=== PATIENT | male | born 1975 | race Caucasian/White ===

== ENCOUNTER → 2018-05-20 | Outpatient (CLI) | payer OTHER ==
[~2018-05-20] MED LIST: MAGCITRATE PO
== END ==
LOC: COL.RAD 05-17 13:15
DX: M51.36 Other intervertebral disc degeneration, lumbar region (principal)

== ENCOUNTER 2018-05-24 09:38 | Emergency (ER) | payer OTHER ==
[~2018-05-24] VITALS: Ht 177.8 cm; Wt 86.4 kg
[2018-05-24 09:48] VITALS: TEMP 97.5
[2018-05-24 10:26] LABS: BASO % 0.7 % (0.0-2.0); EOS # 0.1 (0.0-0.7); EOS % 1.6 % (0-4.0); GRAN # 2.7 (1.4-6.5); GRAN % 60.9 % (42.2-75.2); HEMATOCRIT 44.7 % (42.0-52.0); HEMOGLOBIN 15.2 g/dl (13.5-18.0); LYMPH # 1.3 (1.2-3.4); MEAN CELL VOLUME 84 fl (80.0-100.0); MEAN CORPUSCULAR HEMOGLOBIN 29 pg (27.0-31.0); MEAN CORPUSCULAR HGB CONC 34 g/dl (33.0-37.0); MEAN PLATELET VOLUME 9.4 fl (7.4-10.4); MONO # 0.3 (0.1-0.6); MONO % 7.1 % (1.7-9.3); PLATELET COUNT 279 K/mm3 (130-400); RED BLOOD COUNT 5.32 M/mm3 (4.20-5.60); REDCELL DISTRIBUTION WIDTH-CV 13.2 % (11.5-14.5)
[2018-05-24 10:53] LABS: ALBUMIN 4.7 gm/dL (3.5-5.0); BILIRUBIN,TOTAL 1.3 mg/dL (0.0-1.0); CALCIUM 9.8 mg/dL (8.4-10.2); CREATININE, serum 0.99 (0.66-1.25); POTASSIUM 4.1 mmol/L (3.4-5.0); TOTAL PROTEIN 8.1 gm/dL (6.4-8.2)
[2018-05-24 11:08] LABS: COLLECTION METHOD CLEAN CATCH
[2018-05-24 11:16] LABS: PH 8 (5-8); SQUAMOUS EPITHELIAL None Seen /hpf; URINE APPEARANCE Clear; URINE BACTERIA None Seen /hpf; URINE BILIRUBIN Negative (NEGATIVE); URINE BLOOD Negative (NEGATIVE); URINE COLOR Straw; URINE GLUCOSE Negative (NEGATIVE); URINE KETONE Negative (NEGATIVE); URINE LEUKOCYTE ESTERASE Negative (NEGATIVE); URINE NITRATE Negative (NEGATIVE); URINE PROTEIN(semi-quant) Negative (NEGATIVE); URINE RBC 0-2 /hpf; URINE UROBILINOGEN Negative (NEGATIVE)
[2018-05-24] MEDS ORDERED: MAGCITRATE PO (12:34)
[2018-05-24 12:54] VITALS: BP 109/81; PULSE 61
== END 2018-05-24 12:56 | disposition home or self-care (01) ==
LOC: COL.ER 09:38
PROVIDERS: Emergency Medicine
DX: R10.84 Generalized abdominal pain (principal)
CPT/HCPCS: C9113; J2270; J2405; J7030; Q9967

== ENCOUNTER → 2018-06-03 | Outpatient (CLI) | payer OTHER | LOC: COL.RAD 06:47 | DX: R10.11 Right upper quadrant pain (principal) | CPT/HCPCS: A9537 ==

== ENCOUNTER → 2018-07-13 | Outpatient (CLI) | payer OTHER | LOC: COL.RAD 09:31 | DX: M51.24 Other intervertebral disc displacement, thoracic region (principal) ==

== ENCOUNTER → 2018-07-21 | Outpatient (CLI) | payer OTHER | LOC: COL.RAD 09:15 | DX: R51 Headache (principal) | CPT/HCPCS: A9585 ==

== ENCOUNTER → 2019-03-29 | Outpatient (CLI) | payer OTHER | LOC: COL.RAD 13:00 | DX: M43.06 Spondylolysis, lumbar region (principal); R31.9 Hematuria, unspecified; N32.89 Other specified disorders of bladder ==

== ENCOUNTER → 2019-08-03 | Outpatient (CLI) | payer OTHER | LOC: COL.RAD 15:05 | DX: M43.00 Spondylolysis, site unspecified (principal); R10.31 Right lower quadrant pain | CPT/HCPCS: Q9967 ==

== ENCOUNTER → 2020-07-24 | Outpatient (CLI) | payer OTHER | LOC: COL.RAD 06:42 | DX: K58.0 Irritable bowel syndrome with diarrhea (principal) | CPT/HCPCS: A9541 ==

== ENCOUNTER → 2020-11-11 | Outpatient (CLI) | payer OTHER | LOC: MHCPAIN 12:25 | DX: M47.818 Spondylosis without myelopathy or radiculopathy, sacral and sacrococcygeal region (principal); M53.3 Sacrococcygeal disorders, not elsewhere classified | CPT/HCPCS: G0463 ==

== ENCOUNTER → 2020-11-25 | Outpatient (CLI) | payer OTHER | LOC: MHCPAIN 09:14 | DX: M47.817 Spondylosis without myelopathy or radiculopathy, lumbosacral region (principal); M54.18 Radiculopathy, sacral and sacrococcygeal region | CPT/HCPCS: Q9967 ==

== ENCOUNTER → 2020-12-04 | Outpatient (CLI) | payer OTHER | LOC: MHCPAIN 09:18 | DX: M54.18 Radiculopathy, sacral and sacrococcygeal region (principal); M47.816 Spondylosis without myelopathy or radiculopathy, lumbar region; G89.29 Other chronic pain | CPT/HCPCS: G0463 ==

== ENCOUNTER → 2021-05-02 | Outpatient (CLI) | payer OTHER | LOC: COL.CARD 09:44 | DX: I10 Essential (primary) hypertension (principal) ==

== ENCOUNTER → 2021-09-30 | Outpatient (CLI) | payer OTHER | LOC: COL.RAD 09:18 | DX: R10.13 Epigastric pain (principal) ==

== ENCOUNTER → 2021-10-02 | Outpatient (CLI) | payer OTHER | LOC: COL.RAD 08:39 | DX: G96.191 Perineural cyst (principal) ==

== ENCOUNTER → 2022-04-06 | Outpatient (CLI) | payer OTHER | LOC: COL.LAB 09:29 | DX: R19.5 Other fecal abnormalities (principal) ==

== ENCOUNTER → 2022-05-22 | Outpatient (CLI) | payer OTHER | LOC: COL.LAB 08:44 | DX: R19.5 Other fecal abnormalities (principal) ==

== ENCOUNTER → 2022-06-17 | Outpatient (CLI) | payer OTHER | LOC: COL.RAD 14:03 | DX: K57.32 Diverticulitis of large intestine without perforation or abscess without bleeding (principal); R10.11 Right upper quadrant pain | CPT/HCPCS: Q9967 ==

== ENCOUNTER → 2022-06-17 | Outpatient (CLI) | payer OTHER ==
[2022-06-17 11:19] LABS: BASO % 0.4 % (0.0-2.0); EOS % 0.4 % (0.0-4.0); GRAN # 8.6 K/mm3 (1.4-6.5); HEMATOCRIT 41.7 % (42.0-52.0); HEMOGLOBIN 14.1 g/dl (13.5-18.0); LYMPH # 1.7 K/mm3 (1.2-3.4); LYMPH % 14.9 % (20.0-51.0); MEAN CELL VOLUME 82 fl (80.0-100.0); MEAN CORPUSCULAR HEMOGLOBIN 28 pg (27-31); MEAN CORPUSCULAR HGB CONC 34 g/dl (33.0-37.0); MEAN PLATELET VOLUME 9.1 fl (7.4-10.4); MONO # 0.8 K/mm3 (0.1-0.6); MONO % 6.8 % (1.7-9.3); PLATELET COUNT 276 K/mm3 (130-400); RED BLOOD COUNT 5.07 M/mm3 (4.20-5.60); REDCELL DISTRIBUTION WIDTH-CV 13.6 % (11.5-14.5)
[2022-06-17 11:45] LABS: ALBUMIN 4.4 gm/dL (3.5-5.0); CALCIUM 9.8 mg/dL (8.4-10.2); CREATININE, serum 1.08 mg/dL (0.72-1.25); POTASSIUM 4.5 mmol/L (3.5-4.5); TOTAL PROTEIN 7.8 gm/dL (6.2-8.1)
== END ==
LOC: COL.LAB 10:36
PROVIDERS: Physician Assistant Medical
DX: R10.11 Right upper quadrant pain (principal)

== ENCOUNTER → 2023-03-31 | Outpatient (CLI) | payer OTHER ==
[~2023-03-31] MED LIST changes: +Gadoterate 20 ML VIAL IV ONE
== END ==
LOC: COL.RAD 06:56
DX: R90.82 White matter disease, unspecified (principal); R51.9 Headache, unspecified
CPT/HCPCS: A9575

== ENCOUNTER → 2023-06-08 | Outpatient (CLI) | payer OTHER ==
[~2023-06-08] MED LIST changes: +Iohexol 300 - 100 ML VIAL IV ONE; +NS 100 ML IV SCH
== END ==
LOC: COL.RAD 07:37
DX: G44.039 Episodic paroxysmal hemicrania, not intractable (principal); M54.2 Cervicalgia
CPT/HCPCS: A9575; Q9967

== ENCOUNTER 2023-09-01 18:28 | Emergency (ER) | payer OTHER ==
[~2023-09-01] VITALS: Ht 177.8 cm; Wt 90.9 kg
[~2023-09-01 18:28] MED LIST changes: -Gadoterate 20 ML VIAL IV ONE; -Iohexol 300 - 100 ML VIAL IV ONE; -NS 100 ML IV SCH
[2023-09-01 18:31] VITALS: TEMP 98.1
[2023-09-01 20:14] LABS: BASO % 0.6 % (0.0-2.0); EOS # 0.1 K/mm3 (0.0-0.7); EOS % 1.7 % (0.0-4.0); GRAN # 3.7 K/mm3 (1.4-6.5); GRAN % 52.8 % (42.2-75.2); HEMATOCRIT 46.1 % (42.0-52.0); HEMOGLOBIN 15.3 g/dl (13.5-18.0); LYMPH # 2.7 K/mm3 (1.2-3.4); LYMPH % 38.6 % (20.0-51.0); MEAN CELL VOLUME 85 fl (80.0-100.0); MEAN CORPUSCULAR HEMOGLOBIN 28 pg (27-31); MEAN CORPUSCULAR HGB CONC 33 g/dl (33.0-37.0); MEAN PLATELET VOLUME 9.5 fl (7.4-10.4); MONO # 0.4 K/mm3 (0.1-0.6); MONO % 5.9 % (1.7-9.3); PLATELET COUNT 290 K/mm3 (130-400); RED BLOOD COUNT 5.44 M/mm3 (4.20-5.60); REDCELL DISTRIBUTION WIDTH-CV 13.4 % (11.5-14.5)
[2023-09-01 20:30] LABS: ALANINE AMINOTRANSFERASE 19 U/L (0-55); ALBUMIN 4.6 g/dL (3.5-5.0); ALKALINE PHOSPHATASE 53 U/L (40-150); ANION GAP 13 mmol/L (7-16); AST,SGOT 17 U/L (5-34); BILIRUBIN,TOTAL 0.7 mg/dL (0.2-1.2); BLOOD UREA NITROGEN 14 mg/dL (8-26); CALCIUM 10.1 mg/dL (8.4-10.2); CHLORIDE 103 mEq/L (98-107); CREATININE, serum 1.14 mg/dL (0.72-1.25); GLUCOSE 91 mg/dL (70-99); MAGNESIUM 2.6 mg/dL (1.6-2.6); POTASSIUM 3.6 mEq/L (3.5-4.5); SODIUM 140 mEq/L (136-145); TOTAL PROTEIN 8.3 g/dl (6.2-8.1)
[2023-09-01 20:43] LABS: TROPONIN-I < 0.010 ng/mL (0.00-0.033)
[2023-09-01] MEDS ORDERED: NS 100 ML IV ONE (20:43)
[2023-09-01] MEDS ORDERED: Iohexol 300 - 100 ML VIAL IV ONE (20:43)
[2023-09-01 22:04] VITALS: BP 140/86; PULSE 51
== END 2023-09-01 22:08 | disposition home or self-care (01) ==
LOC: COL.ER 18:28
PROVIDERS: Family Medicine
DX: K57.90 Diverticulosis of intestine, part unspecified, without perforation or abscess without bleeding (principal)
CPT/HCPCS: Q9967

== ENCOUNTER 2023-10-08 09:32 | Day surgery (SDC) | payer OTHER ==
[~2023-10-08] VITALS: Ht 177.8 cm; Wt 88.6 kg
[~2023-10-08 09:32] MED LIST changes: +LR 1,000 ML IV SCH; +Ondansetron 4 MG/2 ML VIAL IV PRN
[2023-10-08] MEDS ORDERED: Lidocaine PF 2% (20 MG/ML) 5 ML VIAL ONE (10:46)
[2023-10-08 11:15] VITALS: BP 103/78; PULSE 67; TEMP 98
[2023-10-08 11:30] VITALS: BP 123/93; PULSE 68
--- NOTE | 2023-10-08 11:54 | NUR ---
1115- Pt returns from procedure on cart, ambulates to recliner with assist of 2. at bedside. IV fluids infusing through right hand IV without complications. Apple juice and muffin given. 1125- Discharge instructions given, questions answered 1126- Dr. Linares in room to talk with patient 1139- IV removed, pt getting dressed. 1145- Discharged to wifes car via w/c. Denies complaints.
[2023-10-08 12:10] VITALS: BP 131/93; PULSE 70; TEMP 98
[2023-10-08] MEDS ORDERED: TOPROL XL 25MG25 MG PO (12:13)
[2023-10-08] MEDS ORDERED: NEURONTIN300 MG/CAP PO (12:13)
[2023-10-08] MEDS ORDERED: ONE-A-DAY MEN'1 EAC5 PO (12:15)
[2023-10-08] MEDS ORDERED: TYLENOL 500MG500 MG PO (12:15)
== END 2023-10-08 11:45 | disposition home or self-care (01) ==
LOC: SDCO 09:32
DX: K92.1 Melena (principal); D12.2 Benign neoplasm of ascending colon; K64.9 Unspecified hemorrhoids; K57.30 Diverticulosis of large intestine without perforation or abscess without bleeding; K21.9 Gastro-esophageal reflux disease without esophagitis
CPT/HCPCS: J2704; J7120